=== PATIENT | male | born 1950 | race Caucasian/White ===

== ENCOUNTER 2021-09-02 09:21 | Outpatient (CLI) | payer MEDICARE, SELFPAY ==
--- NOTE | 2021-09-02 11:00 | NEURO_ITS ---
Impression: # Complains of numbness of thumb and pointing fingers bilaterally. # Bilateral moderate Carpal Tunnel Syndrome. # No ulnar neuropathy. # Needle/EMG exam mildly neurogenic but no fibs. Nerve Conduction Studies Anti Sensory Summary Table Stim Site NR Peak (ms) P-T Amp (?V) Site1 Site2 Delta-P (ms) Dist (cm) Lasha (m/s) Left Median Anti Sensory (2-3nd Digit) Wrist 4.5 13.1 Wrist 2-3nd Digit 4.5 14.0 31 Wrist 4.9 16.0 Wrist 2-3nd Digit 4.5 14.0 31 Right Median Anti Sensory (2-3nd Digit) Wrist 4.8 58.6 Wrist 2-3nd Digit 4.8 14.0 29 Wrist 5.7 27.7 Wrist 2-3nd Digit 4.8 14.0 29 Left Radial Anti Sensory (Base 1st Digit) Wrist 1.9 22.8 Wrist Base 1st Digit 1.9 0.0 Right Radial Anti Sensory (Base 1st Digit) Wrist 2.3 6.3 Wrist Base 1st Digit 2.3 0.0 Left Ulnar Anti Sensory (5th Digit) Wrist 2.7 32.6 Wrist 5th Digit 2.7 14.0 52 Right Ulnar Anti Sensory (5th Digit) Wrist 2.6 20.0 Wrist 5th Digit 2.6 14.0 54 Motor Summary Table Stim Site NR Onset (ms) O-P Amp (mV) Site1 Site2 Delta-0 (ms) Dist (cm) Lasha (m/s) Left Median Motor (Abd Poll Brev) Wrist 5.2 2.1 Elbow Wrist 5.2 29.0 56 Elbow 10.4 1.8 Right Median Motor (Abd Poll Brev) Wrist 5.7 1.4 Elbow Wrist 4.8 28.0 58 Elbow 10.5 1.3 Left Ulnar Motor (Abd Dig Minimi) Wrist 2.9 7.1 A Elbow Wrist 5.1 31.0 61 A Elbow 8.0 5.4 Right Ulnar Motor (Abd Dig Minimi) Wrist 2.7 6.7 A Elbow Wrist 5.1 30.0 59 A Elbow 7.8 5.8 F Wave Studies NR F-Lat (ms) L-R F-Lat (ms) Left Median (Mrkrs) (Abd Poll Brev) 32.82 0.62 Right Median (Mrkrs) (Abd Poll Brev) 32.19 0.62 Left Ulnar (Mrkrs) (Abd Dig Min) 30.16 0.57 Right Ulnar (Mrkrs) (Abd Dig Min) 29.59 0.57 EMG Side Muscle Nerve Root Ins Act Fibs Amp Dur Recrt Comment Right 1stDorInt Ulnar C8-T1 Nml Nml Nml >12ms Reduced Right Ext Indicis Radial (Post Int) C7-8 Nml Nml Nml Nml Nml Right Ext Digitorum Radial (Post Int) C7-8 Nml Nml Nml Nml Nml Right BrachioRad Radial C5-6 Nml Nml Nml Nml Nml Right PronatorTeres Median C6-7 Nml Nml Nml Nml Nml Right Abd Poll Brev Median C8-T1 Nml Nml Nml Nml Nml Left 1stDorInt Ulnar C8-T1 Nml Nml Nml >12ms Reduced Left Ext Indicis Radial (Post Int) C7-8 Nml Nml Nml Nml Nml Left Ext Digitorum Radial (Post Int) C7-8 Nml Nml Nml Nml Nml Left BrachioRad Radial C5-6 Nml Nml Nml Nml Nml Left PronatorTeres Median C6-7 Nml Nml Nml Nml Nml Left Abd Poll Brev Median C8-T1 Nml Nml Nml Nml Nml MTDD
== END 2021-09-02 09:22 | disposition home or self-care (01) ==
PROVIDERS: PCP Family Medicine; Visit Provider Family Medicine
DX: G56.03 Carpal tunnel syndrome, bilateral upper limbs (principal)
CPT/HCPCS: 95886; 95911

== ENCOUNTER 2021-10-07 02:07 | Day surgery (SDC) | payer MEDICARE, SELFPAY ==
--- NOTE | 2021-09-28 13:31 | PC.NURSE ---
Report to the Outpatient Waiting Room, entrance under the green pavilion located off [facility], at time _1300 on date __10/07/21 . OR Time: _1400 . - You and your visitor will be asked a series of questions to screen for COVID 19 for your protection. - A mask is required within the hospital. Preoperative COVID Testing Requirements: No COVID Test needed if: (proof is required; if not received patient will have Rapid Test prior to entry) - Patient has received COVID Vaccine at least 14 days prior to procedure date or - Patient has positive COVID test result within last 90 days of surgery date. COVID Test needed if above criteria is not met If not COVID vaccinated a COVID test must be conducted within 72 hours of surgery and patient is asked to isolate self from time of testing until procedure. You will go to the [facility] for your COVID testing. The [employer] [facility] is located at the corner of [address] from [facility]. You will only be called if COVID results are positive and your surgeon may reschedule your elective surgery date. LIGHT BREAKFAST MORNING OF SURGERY Take the following medications with a SIP of water the morning of surgery: ____ALL ROUTINE MORNING MEDICATIONS- MAY REMAIN ON EL[facility] PRE DR MCELROY Medications to discontinue per physician Date to take last dose Please no make-up, nail belarusian, hairspray, perfume, deodorant, or body powder the day of surgery. No jewelry (including any body piercings) or valuables the day of surgery, leave them at home. Please take a shower or bath the night before, or the morning of, surgery with an antibacterial soap. Wear comfortable, loose fitting clothing. Children are encouraged to wear pajamas. - Jewelry must be removed prior to entering the operating room. Rings and piercings that are not removed may be cut off. - The hospital will not accept responsibility for valuables. - Please leave all valuables, including medications, at home the day of surgery. MAY DRIVE YOURSELF HOME AFTER SURGERY- LOCAL ANESTHESIA One visitor will be allowed to accompany the patient into the hospital. Patients visitor will be instructed to remain with patient at all times or leave the building. We will allow the visitor to come back to the postoperative area when patient is ready. Follow any additional instructions given to you from your surgeon. Telephone instructions given to ___PATIENT and asked if any additional questions and then verbalized understanding. Patient advised to call surgeon office or pre surgery nurse liaison [phone] if any additional questions.
[2021-09-28 13:49] VITALS: BMI 28.8
--- NOTE | 2021-10-07 07:20 | WPDHPUPDATE1 ---
History and Physical Update Update Date/Time: 10/07/21 07:20 History and Physical has been reviewed, including an updated exam of the patient. There are NO changes in the patient's condition. Risks, benefits, and alternatives have been discussed and questions answered. Patient agrees to proceed with procedure.
[2021-10-07 15:10] VITALS: BP 136/73; PULSE 58; RESP 16; TEMP 36.6; O2SAT 99
[2021-10-07 15:55] VITALS: BP 164/77; PULSE 54; RESP 16; O2SAT 98
[2021-10-07 16:00] VITALS: BP 175/82; PULSE 53; RESP 16; O2SAT 99
[2021-10-07 16:10] VITALS: BP 175/77; PULSE 61; RESP 16; O2SAT 98
[2021-10-07 16:20] VITALS: BP 168/74; PULSE 62; RESP 16; O2SAT 98
[2021-10-07 16:29] VITALS: BP 178/86; PULSE 62; RESP 16; O2SAT 97
--- NOTE | 2021-10-07 16:42 | P.OP_ITS ---
Procedure Note - Detailed Date of Procedure 10/07/21 Pre-op Diagnosis bilat carpal tunnel syndrome Post-op Diagnosis Same Procedure Performed Bilateral open carpal tunnel release Surgeon Roderick Gonzalez MD Anesthesia Local Description of Procedure The 2 hands were marked with the patient in the holding area. He was then taken to the operating room where he was placed supine on the operating table. Time- out was held confirmed. The 2 hands were prepped draped separate hand tables and both sides were marked and infiltrated with 1% lidocaine with epinephrine. Left hand was done 1st with inflation of tourniquet to 250 mmHg. A 15 blade was used to incise the skin and dissection was carried bluntly through the subcutaneous tissue to the palmar aponeurosis. This and the transverse retinaculum were incised with the 15 blade opening the canal. Under 3 point retraction the ligament was divided distally and proximally to completely release it. There was no unusual anatomy noted. The skin was closed with interrupted 4-0 nylon sutures just after the tourniquet was released. The usual bandage was applied. Attention was turned to the right side. The tourniquet was again inflated to 250 mmHg. The incision was made in the palm as marked and the dissection was carried bluntly through the subcutaneous tissue to the palmar aponeurosis. This and the carpal ligament were incised with a 15. Blade entering the canal. Under 3 point retraction the ligament was divided distally and proximally to com pletely release it. There was no unusual anatomy noted. The skin was closed with interrupted 4-0 nylon suture just after the tourniquet was released. The usual bandage was applied with an Fredo wrap and the patient was discharged from the operating room stable condition. Is discharged with a prescription for hydrocodone 5/325 6. Estimated Blood Loss 5 Tourniquet Time 6 Drains No Packing No Pathology None sent Complications No immediate complications Condition Stable Disposition Same day
== END 2021-10-07 16:47 | disposition home or self-care (01) ==
PROVIDERS: PCP Family Medicine; Visit Provider Plastic Surgery
PROC: (CPT 64721; principal; 2021-10-07 15:30)
DX: G56.03 Carpal tunnel syndrome, bilateral upper limbs (principal); I10 Essential (primary) hypertension; Z86.73 Personal history of transient ischemic attack (TIA), and cerebral infarction without residual deficits
CPT/HCPCS: 64721; A9270

== ENCOUNTER 2024-04-23 14:15 | Outpatient (CLI) | payer MEDICARE, SELFPAY ==
--- NOTE | ~2024-04-23 | XR_ITS ---
[id number] Ordering provider: Jt Thorne MD History: . twisting injury 3 days ago anterior knee pain . Comparison: None. FINDINGS: BONES: No acute fracture or dislocation. JOINT SPACES: Normal. SOFT TISSUES: Normal. IMPRESSION: No acute osseous abnormality right knee. Reviewed, dictated and finalized at location A.
== END 2024-04-23 14:16 | disposition home or self-care (01) ==
PROVIDERS: PCP Family Medicine; Visit Provider Family Medicine
DX: S89.91XA Unspecified injury of right lower leg, initial encounter (principal); X58.XXXA Exposure to other specified factors, initial encounter
CPT/HCPCS: 73560

== ENCOUNTER 2024-05-28 12:32 | Outpatient (CLI) | payer MEDICARE, SELFPAY ==
--- NOTE | ~2024-05-28 | MR_ITS ---
EXAMINATION: MR knee RT wo con DATE: 05/28/2024 13:11 INDICATION: Right knee pain. TECHNIQUE: Magnetic resonance imaging (MRI) of the right knee was performed without intravenous contr ast. Sequences included axial PD-weighted FS FSE, coronal PD-weighted FSE and PD-weighted FS FSE, sag ittal PD-weighted FSE, and sagittal T2-weighted FS FSE. COMPARISON: Right knee radiographs 04/23/2024 FINDINGS: Medial compartment: There is a complex tear involving body and posterior horn of medial meniscus with flap component in t he inferior gutter. There is cartilage surface irregularity of tibial condyle and femoral condyle. Os teophytes are noted. Lateral compartment: There is a complex tear involving body and posterior horn of lateral meniscus. There is partial-thick ness cartilage loss of femoral condyle, deep at the central articular surface. There is shallow parti al-thickness cartilage loss of tibial condyle. Osteophytes are noted. Patellofemoral compartment: There is full-thickness cartilage loss of patellar lateral facet and deep partial-thickness cartilage loss of patellar medial facet. There is full thickness causes loss of lateral trochlea with mild sub chondral edema-like marrow signal intensity. There is partial thickness cartilage loss of central and medial trochlea. Osteophytes are noted. Ligaments and tendons: The anterior cruciate ligament is normal. There is a partial tear of posterior cruciate ligament ruddy acterized by thickening and increased signal intensity. There are changes of prior sprains of medial collateral ligament and fibular collateral ligament characterized by thickening and increased signal intensity proximally. There is mild patellar tendinopathy. Fluid: There is a small knee joint effusion. There is multiloculated semimembranosus-tibial collateral ligam ent bursitis. There is a 2.1 x 2.0 x 1.1 cm ganglion cyst posterior to the lateral compartment. There is subcutaneous edema about the knee. IMPRESSION: 1. Severe chondrosis of patellofemoral compartment, moderate chondrosis of lateral compartment, and m ild chondrosis of medial compartment. 2. Tears of the medial and lateral menisci. 3. Small knee joint effusion. 4. Multiloculated semimembranosus-tibial collateral ligament bursitis. 5. Ganglion cyst posterior to the lateral compartment of the knee. Reviewed, dictated and finalized at location A. IMPRESSION: 1. Severe chondrosis of patellofemoral compartment, moderate chondrosis of late ral compartment, and mild chondrosis of medial compartment. 2. Tears of the medial and lateral menisci. 3. Small knee joint effusion. 4. Multiloculated semimembranosus-tibial collateral ligament bursitis. 5. Ganglion cyst posterior to the lateral compartment of the knee.
== END 2024-05-28 12:33 | disposition home or self-care (01) ==
PROVIDERS: PCP Family Medicine; Visit Provider Family Medicine
DX: M22.41 Chondromalacia patellae, right knee (principal); S83.281A Other tear of lateral meniscus, current injury, right knee, initial encounter; S83.241A Other tear of medial meniscus, current injury, right knee, initial encounter; X58.XXXA Exposure to other specified factors, initial encounter; M76.41 Tibial collateral bursitis [Pellegrini-Stieda], right leg; M67.461 Ganglion, right knee
CPT/HCPCS: 73721

== ENCOUNTER 2025-01-15 11:07 | Emergency (ER) | payer MEDICARE, SELFPAY ==
[2025-01-15 11:15] VITALS: BP 127/79; PULSE 73; RESP 16; TEMP 36.8; O2SAT 97
--- NOTE | 2025-01-15 11:35 | ED.GENADULT ---
HPI - General Adult General Chief complaint: Wound/Laceration Stated complaint: SCALP LACERATION Source: patient Mode of arrival: ambulatory Limitations: no limitations History of Present Illness HPI narrative: Patient is a pleasant 74-year-old male presenting with complaint of wound. He reports laceration to the posterior aspect of his scalp. Injury was sustained approximately 1 hour prior to arrival. Patient states he was working in the yard when he fell backward, subsequently striking the back of his head on a brick wall. he denies loss consciousness. Denies any dizziness, weakness, light headedness, chest pain, shortness of Breath or any complaints. Last tetanus vaccination received less than 5 years ago. Related Data Home Medications ?Medication ?Instructions ?Recorded ?Confirmed ?Last Taken ?Type apixaban 5 mg tablet (Eliquis) 5 mg PO BID 07/15/19 09/26/24 10/07/21 History metoprolol succinate 25 mg 25 mg PO DAILY 07/15/19 09/26/24 10/07/21 History tablet,extended release 24 hr multivitamin 1 tablet PO DAILY 07/15/19 09/26/24 10/07/21 History nifedipine 30 mg tablet,extended 30 mg PO BID 01/27/21 09/26/24 10/07/21 History release Allergies Allergy/AdvReac Type Severity Reaction Status Date / Time Penicillins Allergy Mild AMOXIL Verified 01/15/25 11:36 ALLERGY- RASH amoxicillin Allergy Unknown Rash Verified 01/15/25 11:36 Review of Systems Review of Systems: CONSTITUTIONAL: Denies body aches, fever, chills, or sweats. EYES: Denies visual changes, redness, or discharge. ENT: Denies rhinorrhea, congestion, sore throat, or otalgia. CARDIOVASCULAR: Denies chest pain, palpitations, or edema. RESPIRATORY: Denies cough or dyspnea. GASTROINTESTINAL: Denies abdominal pain, nausea, vomiting, or diarrhea. GENITOURINARY: Denies dysuria or hematuria. SKIN: Denies rash, itching MUSCULOSKELETAL: Denies back pain, joint pain, or myalgia. NEUROLOGIC: Denies headache, numbness, tingling, or weakness. PSYCH: Denies depression or anxiety. All systems reviewed & are unremarkable except as noted in HPI and below PMFSH Past Medical History Medical History Thoracic aortic aneurysm Gustatory rhinitis Obesity Paroxysmal A-fib Carpal tunnel syndrome Surgical History Surgical History S/P patent foramen ovale closure Family History Family History Mother Hypertension Father Patient's father is in good health Sibling Patient's sister is in good health Patient's brother is in good health Social History Social History Social History: Smoking status: Never smoker Second hand tobacco smoke exposure: No Alcohol intake: current Substance use: never Substance use type: does not use Do You Feel Safe in your Home?: Yes Lack of Transportation: No Lack of Food: Never True Current Housing: I Have Housing Concerned About Future Housing: No Difficulty Paying Gas/Electric Bills: No Difficulty Paying for Meds: No Currently Unemployed: YES Education: Don't Know Difficulty w/ Childcare or Family Care: No Living arrangements: with family Occupation/Education: retired Gender identity (if verbalized by the patient): Male Sexual Orientation (if Verbalized by the Patient): Straight or Heterosexual Spiritual care concerns: No Exam Narrative: GENERAL: Well-appearing, well-nourished, and in no acute distress. EYES: EOMI. No redness or drainage. Conjunctivae normal. ENT: Mucous membranes pink and moist. Nares clear. No rhinorrhea. TMs normal bilaterally. Throat normal. Uvula midline. NECK: Normal AROM. Supple. CHEST: No respiratory distress. HEART: Regular rate Normal peripheral pulses. MUSCULOSKELETAL: No bony tenderness. EXTREMITIES: Normal range of motion. No edema. SKIN: Warm, dry, no rash. Capillary refill normal. Normal skin turgor. NEURO: No focal deficits. Alert and oriented x3. Gait steady. PSYCH: Normal affect. No signs of depression or anxiety. HENMT: Head: No palpable skull fracture present, no Foss's sign, laceration parietal irregular and with sensation intact; not actively bleeding, without pulsatile bleeding and no foreign body present 2.5 cm and No periorbital ecchymosis Neck: Neck: normal visual inspection Other: no cspine tenderness Neuro: Cranial nerves: Yes CN's II-XII intact bilaterally Cognition (Neuro): normal cognition Speech: normal speech Gait exam (Neuro): Normal gait present Motor exam (neuro): 5/5 motor strength present throughout Sensory Exam: normal sensation Course Course Emergency Course: No nathaly available for wound closure--supposed to arrive later today in a shipment. Given his age, use of eliquis, head injury, I recommended he be transferred to ER of his choice for further diagnostic work up including CT, wound closure. Verbal report called to Dr. Bennett. Pt is aware that he should go straight to ER, remain NPO until instructed otherwise. His is present and will transport via POV. Level of Care: Express Care Visit Vital Signs Vital signs: Vital Signs Temperature 98.3 F 01/15/25 11:15 Pulse Rate 73 01/15/25 11:15 Respiratory Rate 16 01/15/25 11:15 Blood Pressure 127/79 01/15/25 11:15 Pulse Oximetry 97 01/15/25 11:15 Temperature 98.3 F 01/15/25 11:15 Pulse Rate 73 01/15/25 11:15 Respiratory Rate 16 01/15/25 11:15 Blood Pressure 127/79 01/15/25 11:15 Pulse Oximetry 97 01/15/25 11:15 Transfer Transfered to: [facility]: Other (POV) Transfer rationale: access to higher level of care Accepting physician: Donald [facility] Decision Making Vital Signs Vital Signs: Vital Signs Temperature 98.3 F 01/15/25 11:15 Pulse Rate 73 01/15/25 11:15 Respiratory Rate 16 01/15/25 11:15 Blood Pressure 127/79 01/15/25 11:15 Pulse Oximetry 97 01/15/25 11:15 Temperature 98.3 F 01/15/25 11:15 Pulse Rate 73 01/15/25 11:15 Respiratory Rate 16 01/15/25 11:15 Blood Pressure 127/79 01/15/25 11:15 Pulse Oximetry 97 01/15/25 11:15 Discharge Plan Discharge Clinical Impression: Laceration of scalp, Head injury, acute, without loss of consciousness, Anticoagulant long-term use, Fall Patient Disposition: Acute Care Hospital Condition: Stable Patient Language: Tamazight Prescriptions: No Action Eliquis 5 mg tablet 5 mg PO BID metoprolol succinate 25 mg tablet extended release 24 hr 25 mg PO DAILY multivitamin Tablet 1 tablet PO DAILY nifedipine 30 mg tablet extended release 30 mg PO BID ramipril 10 mg capsule See Rx Instructions .ROUTE .COMPLEX Qty: 90 2RF Dose Instruction: TAKE 1 CAPSULE BY MOUTH EVERY DAY Rx Instructions: TAKE 1 CAPSULE BY MOUTH EVERY DAY simvastatin 40 mg tablet See Rx Instructions .ROUTE .COMPLEX Qty: 90 2RF Dose Instruction: TAKE 1 TABLET BY MOUTH EVERY DAY Rx Instructions: TAKE 1 TABLET BY MOUTH EVERY DAY Follow-up/Referrals: Jt Thorne MD [Primary Care Provider] - Time of Disposition: 11:42
== END 2025-01-15 11:45 | disposition short-term general hospital (02) ==
PROVIDERS: Emergency Provider Registered Nurse; PCP Family Medicine
DX: S01.01XA Laceration without foreign body of scalp, initial encounter (principal); W19.XXXA Unspecified fall, initial encounter; S09.90XA Unspecified injury of head, initial encounter; Z79.01 Long term (current) use of anticoagulants; I71.20 Thoracic aortic aneurysm, without rupture, unspecified; I48.0 Paroxysmal atrial fibrillation; E66.9 Obesity, unspecified; Z68.28 Body mass index [BMI] 28.0-28.9, adult
CPT/HCPCS: 99212; G0463

== ENCOUNTER 2025-01-15 12:15 | Emergency (ER) | payer MEDICARE, SELFPAY ==
--- NOTE | ~2025-01-15 | CT_ITS ---
Non-contrast Head CT History: Status post fall Technique: Axial non-contrast imaging of the brain was performed. Dose reduction technique was used on this scan by utilizing automated exposure control and iterative reconstruction technique. The dose -length product (DLP) was 605.33 mGy-cm. Findings: There is no evidence of intracranial hemorrhage, mass lesion, or acute infarct. Brain par enchyma appears normal. The ventricles and subarachnoid spaces are normal in size. The calvarium ap pears normal. The visualized paranasal sinuses and mastoid air cells are clear. Impression: No significant abnormality seen. Reviewed, dictated and finalized at location . Impression: No significant abnormality seen.
--- NOTE | 2025-01-15 13:28 | ED.HEATRA ---
HPI - Head Injury General Chief complaint: Head Injury Stated complaint: HEAD LAC ON BLOOD THINNERS Time Seen by Provider: 01/15/25 12:27 History of Present Illness HPI Narrative: Patient is a 74-year-old male who was trimming bushes when he stepped off a retaining wall and then lost his balance falling backwards towards a retaining wall striking his head on a brick. No LOC. No change in vision hearing. Norm normal ambulation. He is on Eliquis. Laceration to posterior scalp. Referred here from urgent care. Related Data Home Medications ?Medication ?Instructions ?Recorded ?Confirmed ?Last Taken ?Type apixaban 5 mg tablet (Eliquis) 5 mg PO BID 07/15/19 01/15/25 01/14/25 History metoprolol succinate 25 mg 25 mg PO DAILY 07/15/19 01/15/25 01/14/25 History tablet,extended release 24 hr multivitamin 1 tablet PO DAILY 07/15/19 01/15/25 01/14/25 History nifedipine 30 mg tablet,extended 30 mg PO BID 01/27/21 01/15/25 01/14/25 History release Allergies Allergy/AdvReac Type Severity Reaction Status Date / Time Penicillins Allergy Mild AMOXIL Verified 01/15/25 12:33 ALLERGY- RASH amoxicillin Allergy Unknown Rash Verified 01/15/25 12:33 Review of Systems Review of Systems: All systems reviewed & are unremarkable except as noted in HPI and below Constitutional: Constitutional: Reports no additional constitutional complaints Integumentary/Breasts: Skin/Breast: Reports system reviewed and no additional complaints, except as docu Neurologic: Reports system reviewed and no additional complaints, except as documented [facility] Past Medical History Medical History Thoracic aortic aneurysm Gustatory rhinitis Obesity Paroxysmal A-fib Carpal tunnel syndrome Surgical History Surgical History S/P patent foramen ovale closure Family History Family History Mother Hypertension Father Patient's father is in good health Sibling Patient's sister is in good health Patient's brother is in good health Social History Social History Social History: Smoking status: Never smoker Second hand tobacco smoke exposure: No Alcohol intake: current Substance use: never Substance use type: does not use Do You Feel Safe in your Home?: Yes Lack of Transportation: No Lack of Food: Never True Current Housing: I Have Housing Concerned About Future Housing: No Difficulty Paying Gas/Electric Bills: No Difficulty Paying for Meds: No Currently Unemployed: YES Education: Don't Know Difficulty w/ Childcare or Family Care: No Living arrangements: with family Occupation/Education: retired Gender identity (if verbalized by the patient): Male Sexual Orientation (if Verbalized by the Patient): Straight or Heterosexual Spiritual care concerns: No Exam Narrative: GENERAL: Well-appearing, well-nourished, and in no acute distress. HEAD: Normocephalic, 3 cm laceration posterior scalp over the occipital protuberance. EXTREMITIES: Normal range of motion. No edema. SKIN: Warm, dry, no rash. NEURO: Alert and oriented x3. PSYCH: Normal mood and affect. Course Course Emergency Course: Informed of results. Wound repaired. Discharged. Vital Signs Vital signs: Vital Signs Pulse Rate 78 01/15/25 13:48 Respiratory Rate 15 01/15/25 13:48 Blood Pressure 133/69 01/15/25 13:48 Pulse Oximetry 99 01/15/25 13:48 Pulse Rate 78 01/15/25 13:48 Respiratory Rate 15 01/15/25 13:48 Blood Pressure 133/69 01/15/25 13:48 Pulse Oximetry 99 01/15/25 13:48 Procedures Laceration Laceration 1: Date: 01/15/25 Time: 13:25 Site: scalp Size (cm): 3 Description: linear Depth: simple, single layer Local Anesthetic: none Pre-repair: wound explored and irrigated ====== Skin Level ====== Skin layer closed with: nathaly Number of sutures: 5 Technique: simple, interrupted ====== Subcutaneous Layer ====== ====== Muscle Layer ====== ====== Tendon Layer ====== Discharge Plan Discharge Clinical Impression: Laceration of scalp Patient Disposition: Home Condition: Stable Instructions: Laceration (ED), Staple Care (ED) Additional Instructions: Removed her nathaly in 5-7 days. Return to the ER if the wound is draining pus, you have fever over 100.4? F, or you have additional concerns. Patient Language: German Prescriptions: No Action Eliquis 5 mg tablet 5 mg PO BID metoprolol succinate 25 mg tablet extended release 24 hr 25 mg PO DAILY multivitamin Tablet 1 tablet PO DAILY nifedipine 30 mg tablet extended release 30 mg PO BID ramipril 10 mg capsule See Rx Instructions .ROUTE .COMPLEX Qty: 90 2RF Dose Instruction: TAKE 1 CAPSULE BY MOUTH EVERY DAY Rx Instructions: TAKE 1 CAPSULE BY MOUTH EVERY DAY simvastatin 40 mg tablet See Rx Instructions .ROUTE .COMPLEX Qty: 90 2RF Dose Instruction: TAKE 1 TABLET BY MOUTH EVERY DAY Rx Instructions: TAKE 1 TABLET BY MOUTH EVERY DAY Follow-up/Referrals: Jt Thorne MD [Primary Care Provider] - 1 Week
[2025-01-15] MEDS: TETANUS/DIPHTHERIA TOXOIDS ADSORB 0.5 ML SYRINGE (*BKC) IM (13:41)
[2025-01-15 13:48] VITALS: BP 133/69; PULSE 78; RESP 15; O2SAT 99
--- OUTSIDE RECORDS SUMMARY | 2025-01-15 14:15 | XMS_ITS | Referral Summary ---
Author Organization [place] [id number] [facility] Address [address] [place] [address] Care Team Providers Care Physics And Astronomy Professor Name Role Phone Jt Thorne MD Primary Care Provider Allergies Active Allergy Reactions Criticality Noted Date Comments Amoxicillin Penicillin G Unknown 03/19/2018 Medications multivitamin tablet,chewable Take 1 tablet by mouth daily. Active ramipril (ALTACE) 10 mg capsuleIndicati ons:hypertensio n Take 1 capsule (10 mg total) by mouth daily Active simvastatin (ZOCOR) 40 mg tablet Take 1 tablet (40 mg total) by mouth nightly Active Eliquis 5 mg tablet TAKE 1 TABLET(5 MG) BY MOUTH TWICE DAILY 180 tablet 3 03/20/2024 Active metoprolol XL (TOPROL-XL) 50 mg extended release tablet TAKE 1 TABLET(50 MG) BY MOUTH DAILY 90 tablet 3 06/17/2024 Active NIFEdipine CC 30 mg 24 hr tablet TAKE 2 TABLETS(60 MG) BY MOUTH DAILY 180 tablet 3 06/17/2024 Active Active Problems Problem Noted Date Diagnosed Date USP current use of anticoagulant therapy 0 09/30/2018 TIA (transient ischemic attack) 03/19/2018 Assessment & Plan (03/23/2018 12:50 PM CDT): Review imaging from outside hospital SMART consult Carotid dopplers done at [facility] Continue aspirin and statin PFO (patent foramen ovale) 03/19/2018 Assessment & Plan (03/27/2018 5:24 PM CDT): S/p repair 03/23 Assessment & Plan (03/23/2018 12:51 PM CDT): LED unremarkable Filters for all iv fluids Echo yesterday showed mild AR, trace TR, mild [place] Going to production laborer for PFO closure today Hypertension 03/19/2018 Assessment & Plan (03/28/2018 8:18 AM CDT): -nifedipine 30mg Assessment & Plan (03/22/2018 11:07 AM CDT): Allowing some permissive hypertension due to recent TIA On Lisinopril Hyperlipidemia 03/19/2018 Assessment & Plan (03/27/2018 5:23 PM CDT): Continue simvastatin Thoracic aortic aneurysm 07/03/2012 Assessment & Plan (03/21/2018 9:59 AM CDT): CTA of chest with unchanged aneurysm 43mm. Atrial fibrillation 07/03/2012 Assessment & Plan (03/28/2018 8:18 AM CDT): Patient presented with palpitations and was found to be in a fib with RVR (HR max 104). He spontaneously converted and has remained in sinus rhythm with HR in the 60's-90's. Etiology: possibly 2/2 recent PFO repair (03/23), possibly paroxysmal in nature considering history of TIA in 1999 and 2003. US of b/l lower extremities on 03/20 showed no evidence of acute deep vein thrombosis in the lower extremities bilaterally (could not r/o isolated calf vein obstruction). -plavix 75 mg -asa 81mg -simvastatin -anticoagulate with apixaban 10 mg daily x 7 days, then decrease to 5 mg daily -tele -f/u outpatient with cardiology -rate control with metoprolol 25 succinate Social History Tobacco Use Types Packs/Day Years Used Date Smoking Tobacco: Never Smokeless Tobacco: Never Tobacco Cessation:Counseling Given: Not Answered Alcohol Use Standard Drinks/Week Comments No 0 (1 standard drink = 0.6 oz pur e alcohol) Sex and Gender Information Value Date Recorded Sex Assigned at Not on file Legal Sex Male 1:14 AM HOUSING INSPECTORS Gender Identity Male 09/30/2019 3:59 PM HOUSING INSPECTORS Sexual Orientation Straight 09/30/2019 3: 59 PM HOUSING INSPECTORS Last Filed Vital Signs Vital Sign Reading Time Taken Comments Blood Pressure 119/70 05/02/2024 9:46 AM CDT Pulse 50 05/02/2024 9:46 AM CDT Temperature 36.7 C (98.1 F) 01/01/2021 1:02 PM CDT Respiratory Rate 18 03/28/2018 9:12 AM CDT Oxygen Saturation 96% 05/02/2024 9:46 AM CDT Inhaled Oxygen Concentration - - Weight 88.9 kg (196 lb) 05/02/2024 9:46 AM CDT Height 175.3 cm (5' 9) 05/02/2024 9:46 AM CDT Body Mass Index 28.94 05/02/2024 9:46 AM CDT Plan of Treatment Not on file Medical Devices Implanted Type Area Associate Teacher Device Identifier Shelf Expiration Date Model / Serial / Lot [employer] 9-Pfo-035 Amplatzer 3 5/25mm 9fr 2 Disk Self Expandable Delivery System - [id number] Implanted:Qty: 1 on 03/23/2018 by Michael Pascual MD PhD at [facility] [employer] 09/06/2022 9-PF O-035 / / [id number] Insurance MEDICARE [facility] MEDICARE [facility] MEDICARE MEDICARE ANTH ACCESS [facility] Advance Directives For more information, please contact: [phone] Documents on File Type Date Recorded Patient Stack Clerk Expl anation ADVANCE DIRECTIVE 03/27/2018 11:33 AM PRITI R OF TABLEMAN * Full Code (Latest Code Status on File) Date Activated Date Inactivated Comments 03/27/2018 6:10 PM 03/28/2018 4:38 PM * Full Code Date Activated Date Inactivated Comments 03/19/2018 9:25 PM 03/24/2018 7:54 PM Care Teams Physics And Astronomy Professor Relationship Specialty Start Date End Date Jt Thorne MD [address] [address] PCP - General Family Medicine 05/02/18
--- OUTSIDE RECORDS SUMMARY | 2025-01-15 14:15 | XMS_ITS | Clinical Summary ---
Author Organization [place] [id number] [facility] Address [address] [place] [address] Care Team Providers Care Oil Well Engineer Name Role Phone Jt Thorne MD Primary [...] Active Problems Problem Noted Date Diagnosed Date MCC current use of anticoagulant therapy 0 09/30/2018 [...] yesterday showed mild AR, trace TR, mild [place] Going to woven label designer for PFO closure today Hypertension 03/19/2018 Assessment [...] cardiology -rate control with metoprolol 25 succinate Surgical History Surgery Date Site/Laterality Comments INGUINAL HERNIA REPAIR Hernia Repair Inguinal Bilateral - (Added by TW Conv) HERNIA REPAIR COLON SURGERY APPENDECTOMY Medical History Medical History Date Comments Reflux esophagitis Chronic Reflu x Esophagitis - (Added by TW Conv) Other nonspecific abnormal f inding of lung field Abnormal chest x-ray with mu ltiple lung nodules - (Added by TW Conv) Personal history of transien t ischemic attack (TIA), and cerebral infarction without residual deficits History of transi ent cerebral ischemia - (Added by TW Conv) Personal history of other sp ecified conditions History of shortness of christian th - (Added by TW Conv) Pain in joint Joint pain - (Ad ded by TW Conv) 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 - (Added by TW Conv) Pain in extremity Limb pain - (A dded by TW Conv) Personal history of other en docrine, nutritional and metabolic disease History of hyperchol esterolemia - (Added by TW Conv) Hyperlipidemia Umbilical hernia Arthritis TIA (transient ischemic attack) Hypertension Renal insufficiency Patent foramen ovale Aortic aneurysm Family History Medical History Relation Name Comments Heart attack Father Hypertension Mother Stroke Mother Diabetes Other 1 Diabetes Mellit - (Added by TW Conv) Heart disease Other 2 Heart Disease - (Added by TW Conv) Relation Name Status Comments Father Mother Other 1 Other 2 Social History Tobacco Use Types Packs/Day Years Used Date Smoking Tobacco: Never Smokeless Tobacco: Never Tobacco Cessation:Counseling Given: Not Answered Alcohol Use Standard Drinks/Week Comments No 0 (1 standard drink = 0.6 oz pur e alcohol) Sex and Gender Information Value Date Recorded Sex Assigned at Not on file Legal Sex Male 1:14 AM SOCIAL HUMAN SERVICES ASSISTANTS Gender Identity Male 09/30/2019 3:59 PM SOCIAL HUMAN SERVICES ASSISTANTS Sexual Orientation Straight 09/30/2019 3: 59 PM SOCIAL HUMAN SERVICES ASSISTANTS Obstetrics History Last Filed Vital Signs Vital Sign Reading [...] 05/02/2024 9:46 AM CDT Plan of Treatment Health Maintenance Due Date Last Done Comments Colon Cancer Screening-Colonoscopy 1950 Fall Risk Assessment 1950 Hepatitis C Screening 1950 DTaP/Tdap/Td Vaccine (1 - Tdap) 1961 Hepatitis B Screening 1968 Well Visit 65+ 12/12/2015 Depression Screening 03/19/2019 03/19/2018 Influenza Vaccine (Season Ended) 2025 04/12/20 19, 05/27/2018 Pneumococcal vaccine 65+ Completed 09/14/2018, 06/07 Zoster Vaccine Completed 10/18/2018, 06/20/2018 Medical Devices Implanted Type Area Printer Slotter Operator Device Identifier Shelf Expiration Date Model / Serial / Lot [employer] 9-Pfo-035 Amplatzer 3 5/25mm 9fr 2 Disk Self Expandable Delivery System - [id number] Implanted:Qty: 1 on 03/23/2018 by Michael Pascual MD PhD at [facility] [employer] 09/06/2022 9-PF O-035 / / [id number] Insurance MEDICARE [facility] MEDICARE [facility] MEDICARE MEDICARE ANTHEM ACCESS Member Subscriber Plan / Payer (Ef fective 2014-Present) Name:Kris Chandler Relation to Subscriber:Self Name:Kris Chandler Payer ID:[id number] (NAIC) Type:BC ALLIANCE Address: [address] [place] [id number] [facility] Advance Directives For more information, please contact: [phone] Documents on File Type Date Recorded Patient Microchip Specialist Expl anation ADVANCE DIRECTIVE 03/27/2018 11:33 AM PRITI R OF WINDING DEPARTMENT SUPERVISOR * Full Code (Latest Code Status on File) Date Activated Date Inactivated Comments 03/27/2018 6:10 PM 03/28/2018 4:38 PM * Full Code Date Activated Date Inactivated Comments 03/19/2018 9:25 PM 03/24/2018 7:54 PM Care Teams Oil Well Engineer Relationship Specialty Start Date End Date Jt Thorne MD [address] [facility] [address] [place] [address] PCP - General Family Medicine 05/02/18
--- OUTSIDE RECORDS SUMMARY | 2025-01-15 14:15 | XMS_ITS | CONTINUITY OF CARE DOCUMENT ---
Author Name marjan phillip Address Unknown Organization [facility] Address [address] [place] [address] [address] [place] [address] Phone [phone] Care Team Providers Care Inside Sales Specialist Name Role Phone marjan phillip Unavailable Unavailable INSURANCE PROVIDERS Payer name Policy type / Coverage type [place] red libertarian ID [facility] [employer] insurance [employer] [id number]
--- OUTSIDE RECORDS SUMMARY | 2025-01-15 14:15 | XMS_ITS | Clinical Summary ---
Author Organization [facility] [employer] Address [address] [facility] [place] [address] Care Team Providers Care Hosiery Pairer Name Role Phone Jt Thorne MD Primary Care Provider [phone] Source Comments [facility] [employer],non-owned Affiliates and Associated Physician Practices is amultiple site organization consisting of ambulatory clinics and hospital sitesin [place], [place], [place] and [place]. This disclosure is being madepursuant to the Care Everywhere program and may not contain all information available regarding this patient. Last updated 18.[facility] Allergies No known active allergies Immunizations Immunization Administration Dates Next Due INFLUENZA VACCINE, HIGH-DOSE , QUADR. (FLUZONE HIGH-DOSE QUADRIVALENT; 65Y+), 0.7 ML (HD-IIV4) 05/07/2020 INFLUENZA VACCINE, QUADR. (F LUZONE; FLULAVAL; FLUARIX; AFLURIA QUADRIVALENT; 6MO+), 0.5 ML (IIV4) 04/12/2019 Social History Tobacco Use Types Packs/Day Years Used Date Smoking Tobacco: Never Assessed Sex and Gender Information Value Date Recorded Sex Assigned at Not on file Legal Sex Male 1:28 PM CDT Gender Identity Not on file Sexual Orientation Not on file Plan of Treatment Health Maintenance Due Date Last Done Comments COLOGTRACEY (AGES 45-75) - COL ON CA SCREENING 1950 COLON MONITORING 1950 COLONOSCOPY - COLON CA SCREENING 1950 CT COLONOGRAPHY - COLON CA SCREENING 1950 Colorectal Cancer Screening 1950 FIT - COLON CA SCREENING 1950 FLEX SIG - COLON CA SCREENING 1950 LIPID TESTING 1950 HEPATITIS C SCREENING 12/06/1968 DTAP/TDAP/TD VACCINES (1 - Tdap) 1969 PNEUMOCOCCAL VACCINE 50+ (1 of 1 - PCV) 2000 ZOSTER VACCINE (1 of 2) 2000 COVID-19 VACCINE (1 - 2023-2 5 season) 2024 DEPRESSION SCREENING 08/07/2024 INFLUENZA VACCINE (Season Ended) 2025 05/07/2020, 04/12/2019 Respiratory Syncytial Virus (RSV) Vaccine Pt: or over 60 yrs (1 - 1-dose 75+ series) 2025 HEPATITIS B VACCINE Aged Out No longe r eligible based on patient's age to complete this topic HIB VACCINE Aged Out No longer eligi ble based on patient's age to complete this topic HPV VACCINE Aged Out No longer eligi ble based on patient's age to complete this topic MENINGOCOCCAL (Group B) VACCINE SHARED DECISION-MAKING Aged Out No longer eligible based on patient's age to complete this topic MENINGOCOCCAL GROUPS A/C/Y/W VACCINE Aged Out No longer eligible b ased on patient's age to complete this topic Insurance MEDICARE MEDICARE Care Teams Hosiery Pairer Relationship Specialty Start Date End Date Jt Thorne MD [address] [place] [address] PCP - General Family Medicine 04/12/19
--- OUTSIDE RECORDS SUMMARY | 2025-01-15 14:15 | XMS_ITS | Encounter Summary ---
Author Organization [facility] Address [address] [place] [address] Phone Care Team Providers Care Esters And Emulsifiers Supervisor Name Role Phone Jt Thorne MD Primary Care Provider Encounter Details Date Type Department Care Team (Late st Contact Info) Description 06/12/2018 Telephone [facility] Cardiology [address] [facility] 8th [place] [address] [place] [address] Sharif Berry MD [address] [facility] [address] [place] [address] Social History Tobacco Use Types Packs/Day Years Used Date Smoking Tobacco: Never Smokeless Tobacco: Never Alcohol Use Standard Drinks/Week Comments No 0 (1 standard drink = 0.6 oz pur e alcohol) Sex and Gender Information Value Date Recorded Sex Assigned at Not on file Legal Sex Male 1:14 AM NUTRITION TEACHER Gender Identity Male 09/30/2019 3:59 PM NUTRITION TEACHER Sexual Orientation Straight 09/30/2019 3: 59 PM NUTRITION TEACHER documented as of this encounter Plan of Treatment Not on file documented as of this encounter Visit Diagnoses Not on filedocumented in this encounter Care Teams Esters And Emulsifiers Supervisor Relationship Specialty Start Date End Date Jt Thorne MD [address] [place] [address] PCP - General Family Medicine 05/02/18 documented as of this encounter
--- OUTSIDE RECORDS SUMMARY | 2025-01-15 15:13 | XMS_ITS | CONTINUITY OF CARE DOCUMENT ---
Author Name marjan phillip Address Unknown Organization [facility] Address [address] [place] [address] [address] [place] [address] Phone [phone] Care Team Providers Care Technical Aide Name Role Phone marjan phillip Unavailable Unavailable INSURANCE PROVIDERS Payer name Policy type / Coverage type [place] red green party ID [facility] [employer] insurance [employer] [id number]
--- OUTSIDE RECORDS SUMMARY | 2025-01-15 15:13 | XMS_ITS | Clinical Summary ---
Author Organization [place] [id number] [facility] Address [address] [place] [address] Care Team Providers Care Yarder Name Role Phone Jt Thorne MD Primary [...] yesterday showed mild AR, trace TR, mild [place] Going to record label intern for PFO closure today Hypertension 03/19/2018 Assessment [...] on file Legal Sex Male 1:14 AM PLASTERER MAINTENANCE Gender Identity Male 09/30/2019 3:59 PM PLASTERER MAINTENANCE Sexual Orientation Straight 09/30/2019 3: 59 PM PLASTERER MAINTENANCE Obstetrics History Last Filed Vital Signs Vital [...] 10/18/2018, 06/20/2018 Medical Devices Implanted Type Area Bacteriologist Industrial Device Identifier Shelf Expiration Date Model / Serial / Lot [employer] 9-Pfo-035 Amplatzer 3 5/25mm 9fr 2 Disk Self Expandable Delivery System - [id number] Implanted:Qty: 1 on 03/23/2018 by Michael Pascual MD PhD at [facility] [employer] 09/06/2022 9-PF O-035 / / [id number] Insurance MEDICARE [facility] MEDICARE [facility] MEDICARE MEDICARE ANTHEM ACCESS Member Subscriber Plan / Payer (Ef fective 2014-Present) Name:Kris Chandler Relation to Subscriber:Self Name:Kris Chandler Payer ID:[id number] (NAIC) Type:[employer] ALLI[employer] Address: [address] [place] [id number] [facility] Advance Directives For more information, please contact: [phone] Documents on File Type Date Recorded Patient Hand Painter Expl anation ADVANCE DIRECTIVE 03/27/2018 11:33 AM PRITI R OF BANKING CENTER MANAGER * Full Code (Latest Code Status on File) Date Activated Date Inactivated Comments 03/27/2018 6:10 PM 03/28/2018 4:38 PM * Full Code Date Activated Date Inactivated Comments 03/19/2018 9:25 PM 03/24/2018 7:54 PM Care Teams Yarder Relationship Specialty Start Date End Date tJ Thorne MD [address] [facility] [address] [place] [address] PCP - General Family Medicine 05/02/18
--- OUTSIDE RECORDS SUMMARY | 2025-01-15 15:13 | XMS_ITS | Encounter Summary ---
Author Organization [facility] Address [address] [place] [address] Phone Care Team Providers Care Hop Picker Name Role Phone Jt Thorne MD Primary Care Provider Encounter Details Date Type Department Care Team (Late st Contact Info) Description 06/12/2018 Telephone [facility] Cardiology [address] [facility] [address] [facility] [address]th [place] [address] [place] [address] Sharif Berry MD [address] [facility] [address] [place] [address] Social History Tobacco Use Types Packs/Day Years Used Date Smoking Tobacco: Never Smokeless Tobacco: Never Alcohol Use Standard Drinks/Week Comments No 0 (1 standard drink = 0.6 oz pur e alcohol) Sex and Gender Information Value Date Recorded Sex Assigned at Not on file Legal Sex Male 1:14 AM PLANT HR MANAGER Gender Identity Male 09/30/2019 3:59 PM PLANT HR MANAGER Sexual Orientation Straight 09/30/2019 3: 59 PM PLANT HR MANAGER documented as of this encounter Plan of Treatment Not on file documented as of this encounter Visit Diagnoses Not on filedocumented in this encounter Care Teams Hop Picker Relationship Specialty Start Date End Date Jt Thorne MD [address] [place] [address] PCP - General Family Medicine 05/02/18 documented as of this encounter
--- OUTSIDE RECORDS SUMMARY | 2025-01-15 15:13 | XMS_ITS | Clinical Summary ---
Author Organization [facility] Address [address] [facility] [place] [address] Care Team Providers Care Battery Wrecker Operator Name Role Phone Jt Thorne MD Primary Care Provider [phone] Source Comments [facility],non-owned Affiliates and Associated Physician Practices is amultiple site organization consisting of ambulatory clinics and hospital sitesin [place], [place], [place] and [place]. This disclosure is being madepursuant to the Care Everywhere program and may not contain all information available regarding this patient. Last updated 18.[facility] Allergies No known active allergies Immunizations Immunization [...] this topic Insurance MEDICARE MEDICARE Care Teams Battery Wrecker Operator Relationship Specialty Start Date End Date Jt Thorne MD [address] [place] [address] PCP - General Family Medicine 04/12/19
--- OUTSIDE RECORDS SUMMARY | 2025-01-15 15:13 | XMS_ITS | Referral Summary ---
Author Organization [place] [address] [facility] Address [address] [place] [address] Care Team Providers Care Crowning Inspector Name Role Phone Jt Thorne MD Primary [...] Active Problems Problem Noted Date Diagnosed Date assisted current use of anticoagulant therapy 0 09/30/2018 [...] yesterday showed mild AR, trace TR, mild [place] Going to labeling strategist for PFO closure today Hypertension 03/19/2018 Assessment [...] on file Legal Sex Male 1:14 AM HOG COOLER Gender Identity Male 09/30/2019 3:59 PM HOG COOLER Sexual Orientation Straight 09/30/2019 3: 59 PM HOG COOLER Last Filed Vital Signs Vital Sign Reading [...] on file Medical Devices Implanted Type Area Route Jumper Device Identifier Shelf Expiration Date Model / Serial / Lot [employer] 9-Pfo-035 Amplatzer 3 5/25mm 9fr 2 Disk Self Expandable Delivery System - [id number] Implanted:Qty: 1 on 03/23/2018 by Michael Pascual MD PhD at [facility] [employer] 09/06/2022 9-PF O-035 / / [id number] Insurance MEDICARE [facility] MEDICARE [facility] MEDICARE MEDICARE ANTH ACCESS [facility] Advance Directives For more information, please contact: [phone] Documents on File Type Date Recorded Patient Junior Copywriter Expl anation ADVANCE DIRECTIVE 03/27/2018 11:33 AM PRITI R OF POWERSAW SUPERVISOR * Full Code (Latest Code Status on File) Date Activated Date Inactivated Comments 03/27/2018 6:10 PM 03/28/2018 4:38 PM * Full Code Date Activated Date Inactivated Comments 03/19/2018 9:25 PM 03/24/2018 7:54 PM Care Teams Crowning Inspector Relationship Specialty Start Date End Date Jt Thorne MD [address] [address] PCP - General Family Medicine 05/02/18
== END 2025-01-15 13:51 | disposition home or self-care (01) ==
PROVIDERS: Emergency Provider Emergency Medicine; PCP Family Medicine
DX: S01.01XA Laceration without foreign body of scalp, initial encounter (principal); Z23 Encounter for immunization; I48.0 Paroxysmal atrial fibrillation; Z79.01 Long term (current) use of anticoagulants; Z79.899 Other long term (current) drug therapy; W01.198A Fall on same level from slipping, tripping and stumbling with subsequent striking against other object, initial encounter
CPT/HCPCS: 12002; 70450; 90471; 90714; 99284